=== PATIENT | female | born 1985 | race Caucasian/White ===

== ENCOUNTER 2017-07-29 12:33 | Outpatient (CLI) | payer OTHER ==
--- NOTE | 2017-07-31 15:29 | Ultrasound Report ---
OB ULTRASOUND: 07/29/2017 CLINICAL INDICATION: anatomy. TECHNIQUE: Real-time scanning was performed with risk control field representative static images obtained. LAST MENSTRUAL PERIOD: 02/24/2017 Clinical Age: 22 weeks 1 day US Age: 22 weeks 0 days EFW Hadlock: 476 g EFW% Hadlock: --- Heart Rate: 135 bpm EDC: 12/01/2017 US EDC: 12/02/2017 BPD Hadlock: 22 weeks 0 days; Mean mm 52.6 HC Hadlock: 21 weeks 4 days; Mean mm 193.8 AC Hadlock: 24 weeks 6 days; Mean mm 169.3 FL Hadlock: 22 weeks 3 days; Mean mm 38.8 Presentation: variable Placental Location: posterior Cervical Length: 4.7 cm Amniotic Fluid: 3.8 cm FINDINGS: There is a single viable intrauterine gestation, in variable position. heart rate is 135 BPM. The placenta is posterior, without evidence of previa. Amniotic fluid volume is subjectively normal, with the deepest pocket of 3.8 cm. By size, the fetus measures 22 weeks 0 days (22 weeks 1 day by LMP). The following anatomic structures were visualized and appear normal: The intracranial contents, including the ventricles and posterior fossa; the lips and orbits; the spine; the heart, including 4 chamber view and outflow tracts, and diaphragm; the abdominal contents, including the stomach, the bilateral kidneys, and urinary bladder, as well as a normal 3 vessel cord insertion; 4 limbs. There is a single isolated echogenic focus seen within the abdomen, anterior to the stomach, without shadowing. No dilated bowel loops, ascites, polyhydramnios or anasarca is seen. This is likely an incidental finding, but followup in the third trimester is recommended. No free fluid or adnexal lesion is appreciated. IMPRESSION: SINGLE VIABLE INTRAUTERINE GESTATION, WITH SIZE IN KEEPING WITH LMP DATING. SOLITARY ECHOGENIC FOCUS ANTERIOR TO THE STOMACH AND THE ABDOMEN. NO ASSOCIATED FINDINGS OF MECONIUM PERITONITIS ARE IDENTIFIED, AND THE ECHOGENIC FOCUS DEMONSTRATES NO SHADOWING AT THIS POINT. FOLLOWUP IN THE THIRD TRIMESTER IS RECOMMENDED. MTDD
== END 2017-07-29 12:34 | disposition home or self-care (01) ==
LOC: DI 12:33
PROVIDERS: ATTEND Obstetrics & Gynecology
DX: Z36.9 Encounter for antenatal screening, unspecified (principal)
CPT/HCPCS: 76811

== ENCOUNTER 2017-09-11 10:32 | Outpatient (CLI) | payer OTHER ==
[2017-09-11 17:55] LABS: BILIRUBIN,URINE NEGATIVE (NEGATIVE); GLUCOSE, URINE (UA) NEGATIVE (NEGATIVE); KETONES,URINE (UA) NEGATIVE (NEGATIVE); LEUKOCYTE ESTERASE, URINE NEGATIVE (NEGATIVE); NITRITE,URINE NEGATIVE (NEGATIVE); OCCULT BLOOD,URINE NEGATIVE (NEGATIVE); PH,URINE 7.5 PH (5.0-7.5); PROTEIN,URINE NEGATIVE (NEGATIVE); UROBILINOGEN,URINE 0.2 (NORMAL) E.U./dL (NORMAL)
[2017-09-11 17:55] LABS: BASOPHILS % (AUTO) 0.3 %; EOSINOPHILS # (AUTO) 0.1 10^3/uL (0.0-0.7); EOSINOPHILS % (AUTO) 0.5 %; HGB - HEMOGLOBIN 11.1 g/dL (12.0-16.0); LYMPHOCYTES # (AUTO) 1.5 10^3/uL (1.5-3.5); LYMPHOCYTES % (AUTO) 12.9 %; MEAN CORPUSCULAR HEMOGLOBIN 30.5 pg (27.0-31.0); MEAN CORPUSCULAR HGB CONC 32.1 g/dL (32.0-36.0); MEAN CORPUSCULAR VOLUME 94.9 fL (81.0-99.0); MEAN PLATELET VOLUME 8.9 fL (7.9-10.8); MONOCYTES # (AUTO) 0.6 10^3/uL (0.0-1.0); MONOCYTES % (AUTO) 5.2 %; NEUTROPHILS # (AUTO) 9.5 10^3/uL (1.5-6.6); NEUTROPHILS % (AUTO) 81.1 %; PLT - PLATELET COUNT 243 10^3/uL (130-450); RED BLOOD COUNT 3.63 10^6/uL (4.20-5.40); RED CELL DISTRIBUTION WIDTH 13.1 % (12.0-15.0); WHITE BLOOD COUNT 11.7 x10^3/uL (4.8-10.8)
[2017-09-11 18:13] LABS: AMORPHOUS SEDIMENT,UR Moderate /LPF; BACTERIA,URINE None Seen /HPF (None Seen); CLARITY,URINE CLOUDY (CLEAR); RBC,URINE None Seen /HPF (0-5); SQUAMOUS EPITHELIAL CELL,UR FEW Squamous (<= Few)
[2017-09-14 10:26] LABS: HEPATITIS B SURFACE ANTIGEN NON-REACTIVE (NON-REACTIVE)
[2017-09-14 15:21] LABS: HIV AG/AB 4TH GEN NON-REACTIVE (NON-REACTIVE)
== END 2017-09-11 10:33 | disposition home or self-care (01) ==
LOC: LAB.F 10:32
PROVIDERS: ATTEND Obstetrics & Gynecology
DX: Z11.3 Encounter for screening for infections with a predominantly sexual mode of transmission (principal); Z36.9 Encounter for antenatal screening, unspecified; Z34.90 Encounter for supervision of normal pregnancy, unspecified, unspecified trimester
CPT/HCPCS: 36415; 81001; 81599; 82950; 85025; 85027; 86592; 86762; 86850; 86900; 86901; 87340; 87389

== ENCOUNTER 2017-10-22 10:43 | Outpatient (CLI) | payer OTHER | END 2017-10-22 10:44 | disposition home or self-care (01) | LOC: LAB.R 10:43 | PROVIDERS: ATTEND Obstetrics & Gynecology | DX: R82.99 Other abnormal findings in urine (principal) | CPT/HCPCS: 87086 ==

== ENCOUNTER 2017-11-06 11:15 | Outpatient (CLI) | payer OTHER | END 2017-11-06 11:16 | disposition home or self-care (01) | LOC: LAB.R 11:15 | PROVIDERS: ATTEND Obstetrics & Gynecology | DX: Z36.85 Encounter for antenatal screening for Streptococcus B (principal) | CPT/HCPCS: 87081 ==

== ENCOUNTER 2017-12-06 01:04 | Observation (INO) | payer OTHER ==
[2017-12-06] MEDS ORDERED: MORPHINE 10 MG/ML VIAL IM SCH (02:49)
[2017-12-06] MEDS ORDERED: PROMETHAZINE 25 MG/1 ML VIAL IM SCH (02:50)
[2017-12-06] MEDS ORDERED: oxyCODONE 5 MG TABLET PO ONE (09:30)
[2017-12-06 10:31] VITALS: BP 114/68
== END 2017-12-06 10:15 | disposition home or self-care (01) ==
LOC: WFO 01:04 → FBP 01:06 → WFO 02:40 → FBP 02:41
PROVIDERS: ADMIT Obstetrics & Gynecology; ATTEND Obstetrics & Gynecology
DX: Z34.83 Encounter for supervision of other normal pregnancy, third trimester (principal)
CPT/HCPCS: 99213

== ENCOUNTER 2017-12-06 17:11 | Outpatient (CLI) | payer OTHER | END 2017-12-06 17:12 | disposition home or self-care (01) | LOC: WFO 17:11 | PROVIDERS: ATTEND Obstetrics & Gynecology | DX: Z53.9 Procedure and treatment not carried out, unspecified reason (principal) ==

== ENCOUNTER 2017-12-06 17:20 | Inpatient (IN) | payer OTHER ==
[2017-12-06] MEDS ORDERED: SODIUM CHLORIDE FLUSH 0.9% 10 ML SYRINGE ONE (17:54)
[2017-12-06] MEDS ORDERED: SODIUM CHLORIDE FLUSH 0.9% 10 ML SYRINGE IVP PRN (18:07)
[2017-12-06] MEDS ORDERED: fentaNYL 100 MCG/2 ML VIAL IVP PRN (18:19)
[2017-12-06] MEDS ORDERED: ONDANSETRON 4 MG/2 ML VIAL IVP PRN (18:20)
[2017-12-06 18:34] LABS: BASOPHILS # (AUTO) 0.1 10^3/uL (0.0-0.1); BASOPHILS % (AUTO) 0.9 %; EOSINOPHILS # (AUTO) 0.1 10^3/uL (0.0-0.7); EOSINOPHILS % (AUTO) 0.6 %; HGB - HEMOGLOBIN 11.3 g/dL (12.0-16.0); LYMPHOCYTES # (AUTO) 2.2 10^3/uL (1.5-3.5); LYMPHOCYTES % (AUTO) 19.5 %; MEAN CORPUSCULAR HEMOGLOBIN 27.5 pg (27.0-31.0); MEAN CORPUSCULAR HGB CONC 33.4 g/dL (32.0-36.0); MEAN CORPUSCULAR VOLUME 82.3 fL (81.0-99.0); MEAN PLATELET VOLUME 9.4 fL (7.9-10.8); MONOCYTES # (AUTO) 0.7 10^3/uL (0.0-1.0); MONOCYTES % (AUTO) 5.9 %; NEUTROPHILS # (AUTO) 8.2 10^3/uL (1.5-6.6); NEUTROPHILS % (AUTO) 73.1 %; PLT - PLATELET COUNT 273 10^3/uL (130-450); RED BLOOD COUNT 4.11 10^6/uL (4.20-5.40); RED CELL DISTRIBUTION WIDTH 15.8 % (12.0-15.0); WHITE BLOOD COUNT 11.2 x10^3/uL (4.8-10.8)
[2017-12-06] MEDS: LACTATED RINGERS 1,000 ML IV SCH (18:59)
[2017-12-06] MEDS ORDERED: OXYTOCIN/SODIUM CHLORIDE 500 ML IV SCH (19:00)
[2017-12-07] MEDS ORDERED: SODIUM CHLORIDE FLUSH 0.9% 10 ML SYRINGE IVP SCH (01:00)
[2017-12-07] MEDS: LACTATED RINGERS 1,000 ML IV SCH ×3 (01:06→08:48)
[2017-12-07] MEDS ORDERED: fent/BUPIV 2 MCG/0.125% 250 ML EP ONE (07:29)
--- NOTE | 2017-12-07 07:59 | ANESTHESIA ---
Pre-Anesthesia VS, & Labs - Diagnosis , term - Procedure labor epidural Vital Signs: Temp Pulse Resp BP Pulse Ox 36.6 C 72 20 131/80 H 100 12/06/17 17:26 12/06/17 17:26 12/06/17 17:26 12/06/17 17:26 12/06/17 17:26 Height 5 ft 4 in Weight (kg) 68.039 kg Body Mass Index 25.7 - NPO Last Food Intake: supper last night - Is Patient ?: Yes - Lab Results Current Lab Results: Laboratory Tests 12/06/17 18:13: WBC 11.2 H, RBC 4.11 L, Hgb 11.3 L, Hct 33.8 L, MCV 82.3, MCH 27.5, MCHC 33.4, RDW 15.8 H, Plt Count 273, MPV 9.4, Neut # (Auto) 8.2 H, Lymph # (Auto) 2.2, [place]oval # (Auto) 0.7, Eos # (Auto) 0.1, Baso # (Auto) 0.1, Absolute Nucleated RBC 0.00, Nucleated RBC % 0.0, Manual Slide Review DIRECTOR OF CRITICAL CARE, WBC Morphology DIRECTOR OF CRITICAL CARE, Platelet Estimate DIRECTOR OF CRITICAL CARE, Platelet Morphology DIRECTOR OF CRITICAL CARE, RBC Morph Micro Appear DIRECTOR OF CRITICAL CARE Fish Bones: 12/06/17 18:13 Home Medications and Allergies Home Medications: Ambulatory Orders Medication Instructions Recorded Confirmed Calcium Carbonate [Tums (Calcium 1,000 mg PO BID 12/06/17 12/06/17 Carbonate 500mg)] Pnv95/Ferrous Fumarate/FA 1 each PO DAILY 12/06/17 12/06/17 [ Formula] Active Medications Fentanyl (Fentanyl) 100 mcg IVP Q1H PRN PRN Reason: PAIN Lactated Ringer's (Lr) 1,000 mls @ 150 mls/hr IV .Q6H40M MAUREEN Last Admin: 12/07/17 07:29 Dose: 999 mls/hr Oxytocin/Sodium Chloride (Pitocin/Sodium Chloride) 500 mls @ 1 mls/hr IV TITR MAUREEN; Protocol Last Admin: 12/06/17 19:00 Dose: 1 milliunit/min, 1 mls/hr Ondansetron HCl (Zofran Inj) 4 mg IVP Q4HR PRN PRN Reason: Nausea / Vomiting Sodium Chloride (Normal Saline Flush 0.9%) 10 ml IVP PRN PRN PRN Reason: NEEDED PER PROVIDER ORDERS Sodium Chloride (Normal Saline Flush 0.9%) 10 ml IVP 0100,0900,1700 MAUREEN Calcium Carbonate [Tums (Calcium Carbonate 500mg)] 1,000 mg PO BID 12/06/17 Pnv95/Ferrous Fumarate/FA [ Formula] 1 each PO DAILY 12/06/17 Allergies/Adverse Reactions: Allergies Allergy/AdvReac Type Severity Reaction Status Date / Time No Known Drug Allergies Allergy Verified 12/06/17 03:01 Anes History & Medical History - Anesthetic History Anesthesia Complications: reports: No previous complications - Medical History Cardiovascular: reports: None Pulmonary: reports: None Gastrointestinal: reports: None Urinary: reports: None Neuro: reports: None Musculoskeletal: reports: None Endocrine/Autoimmune: reports: None Blood Disorders: reports: None Skin: reports: None Smoking Status: Never smoker - Obstetrical History Events: positive: None Complications: positive: None Problems: none, FHR 133-142 OB Anesthesia History: vaginal ten years ago with epidural Plan Anesthesia Type: Epidural Consent for Procedure(s) Verified and Reviewed: Yes Code Status: Attempt Resuscitation ASA classification: 2-Mild systemic disease Is this case an emergency?: No
[2017-12-07] MEDS ORDERED: LACTATED RINGERS 500 ML IV ONE (08:15)
[2017-12-07] MEDS ORDERED: NALBUPHINE 10 MG/ML AMP IVP PRN (08:15)
[2017-12-07] MEDS ORDERED: diphenhydrAMINE INJ 50 MG/ML VIAL IVP PRN (08:15)
[2017-12-07] MEDS ORDERED: ONDANSETRON 4 MG/2 ML VIAL IVP PRN (08:15)
[2017-12-07] MEDS ORDERED: METOCLOPRAMIDE 10 MG/2 ML VIAL IVP PRN (08:15)
[2017-12-07] MEDS ORDERED: ePHEDrine 50 MG/ML VIAL IVP PRN (08:15)
[2017-12-07] MEDS ORDERED: fent/BUPIV 2 MCG/0.125% 250 ML EP PRN (08:15)
[2017-12-07] MEDS ORDERED: NALOXONE 0.4 MG/ML VIAL IVP PRN (08:15)
--- NOTE | 2017-12-07 08:42 | HISTORY & PHYSICAL EXAMINATION ---
History of Present Illness - History of Present Illness HPI Comment/Other: Delayed entry from 12/08/17 CC: contractions HPI: UC ongoing for 48h, would go ahead and like to be augmented at this time, post dates IOL was scheduled for 2d in the future. No VB, no LOF. Good FM. Not feeling ill recently. 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 OB: , uncomplicated this time and prior time. Had a last time within 7h of onset of labor. Normal labs, GBS neg. RH + RI. s/p tdap and flu vax during this . FH: no anesthesia complications O: AVSS Alert, NAD 8.5# omer EFG normal SVE currently 12/07/17 at 08:30 is 4-5/80/-3, vertex, slightly mobile head. Comfortable with epidural. Category 1 NST [place] q3min A/P: 32yo @ 40w6d by LMP c/w 1st TM US, augmented labor for a long prodrome. GBS neg, vertex, 8.5# EFW, category 1 tracing, good recent SVE change. Comfortable with epidural. Sleep and position changes knees open on peanut ball. Anticipate and ensure ongoing SVE change. History - Past Medical History Cardiovascular: reports: None Respiratory: reports: None Neuro: reports: None Endocrine/Autoimmune: reports: None GI: reports: None : reports: None HEENT: reports: None Psych: reports: None Musculoskeletal: reports: None Derm: reports: None Meds/Allgy - Home Medications Home Medications: Ambulatory Orders Medication Instructions Recorded Confirmed Calcium Carbonate [Tums (Calcium 1,000 mg PO BID 12/06/17 12/06/17 Carbonate 500mg)] Pnv95/Ferrous Fumarate/FA 1 each PO DAILY 12/06/17 12/06/17 [ Formula] - Allergies Allergies/Adverse Reactions: Allergies Allergy/AdvReac Type Severity Reaction Status Date / Time No Known Drug Allergies Allergy Verified 12/06/17 03:01 Conclusion/Plan - Lab Results Fish Bones: 12/06/17 18:13
[2017-12-07] MEDS ORDERED: DEXTROSE 5%-LACTATED RINGERS 1,000 ML IV SCH (09:00)
[2017-12-07] MEDS ORDERED: LACTATED RINGERS 1,000 ML IV ONE (11:37)
[2017-12-07] MEDS ORDERED: LIDOCAINE 1% 50 ML MDV ONE (11:46)
[2017-12-07] MEDS ORDERED: MINERAL OIL LIGHT 10 ML MC ONE ×2 (11:46→13:55)
[2017-12-07] MEDS ORDERED: miSOPROStol 100 MCG TABLET ONE (11:46)
[2017-12-07] MEDS ORDERED: WITCH HAZEL/GLYCERIN 1 EACH MED..PAD TOP PRN (13:55)
[2017-12-07] MEDS ORDERED: oxyCODONE 5 MG TABLET PO PRN (13:55)
[2017-12-07] MEDS ORDERED: OXYTOCIN/SODIUM CHLORIDE 250 ML IV ONE (13:55)
[2017-12-07] MEDS ORDERED: LIDOCAINE 1% 50 ML MDV TD ONE (13:56)
[2017-12-07] MEDS ORDERED: LACTATED RINGERS 1,000 ML IV SCH ×2 (14:00→15:00)
--- NOTE | 2017-12-07 14:01 | DELIVERY NOTE ---
Delivery Note - Labor Labor: positive: Augmented by oxytocin - Delivery Method Delivery Method: positive: Vacuum assist - Presentation Presentation: positive: Vertex, TUCKER - right occiput anterior - Nuchal Cord Nuchal Cord: positive: None - Anesthetic Volume: positive: Other - Amniotic Fluid Description Amniotic Fluid Description: positive: Clear - Vacuum Use Indication for Vacuum Use: positive: Suspicion of immediate or potential compromise Type of Vacuum Cup: positive: Cup: Rigid Vacuum Extraction: positive: Successful Number of pop-offs: 0 - Episiotomy Type Episiotomy Type: positive: None - Laceration Laceration: positive: None - Suture Suture Type: positive: Vicryl Suture Size: positive: 3-0 (Pt had a rigth labial skin tag which was removed following local and excision and closure with 3-0 vicryl.) - Delivery Outcome Delivery Outcome: positive: Livebirth - : positive: Placed in direct skin contact with mother, Suctioned, Bulb sy ringe, Stimulated, [place] used [place] sex: positive: Male (Scar) - Cord Cord: positive: 3 vessels - Placenta Placenta: positive: Intact, Spontaneous - Estimated Blood Loss Estimated Blood Loss (in cc): 150 - Post Delivery Events Post Delivery Events: positive: No post delivery events - Delivery Comments (Free Text/Narrative) Delivery Comments (Free Text/Narrative): Head remained high. during labor maternal heart rate was noted to b about 30. for this reason an EKG done which was noted to be NSR. Telemitry showed lowest rate of 50. Pt reached complete at 11:59, crenshaw bulb was between the pubic arch and head. reduced AROM at the same time. head rapidly descended and at 1252 Live Male 9/10 over intact perineum. because of jeff cardic episodes into the 70's a vaccume was places at +3 and pulled thru one contraction. removed and mother was allowed to push the baby out. placenta followedat 1300 intact. with verbal consent a right labia minoria skin tag was removed following local with 1% lidocane adn closure with 3-0 vicryl.
[2017-12-07] MEDS: IBUPROFEN 800 MG TABLET PO SCH ×2 (14:48→21:05)
[2017-12-07] MEDS: ACETAMINOPHEN 500 MG TABLET PO SCH ×2 (14:49→22:49)
--- NOTE | 2017-12-07 19:01 | ANESTHESIA POST OP EVALUATION ---
Anesthesia Post Eval - Post Anesthesia Eval CV Function Including HR & BP: positive: Stable Anesthesia Complications: positive: None (patient stated that they had good pain control with labor and was still able to participate and push. Told Karly to call if she develops a unrelenting headache, backpain not relieved with OTC Tylenol or NSAIDS. I also instructed her to call if signs of infection presented at epidural site or numbness or weakness in legs.)
[2017-12-08] MEDS: IBUPROFEN 800 MG TABLET PO SCH ×2 (03:00→09:15)
[2017-12-08] MEDS: ACETAMINOPHEN 500 MG TABLET PO SCH (09:15)
[2017-12-08 14:17] VITALS: BP 117/75
--- NOTE | 2017-12-08 18:13 | Labor Flowsheet ---
Labor Flowsheet Datetime Report Generated by CPN: 12/08/2017 18:13 Datetime: 12/08/2017 14:15 VITAL SIGNS NBP Sys/Anisha/Mean (mmHg): 117 : 75 : 84 Pulse: 67 LaborFlag: Labor Datetime: 12/08/2017 08:58 SpO2 (%): 100 Datetime: 12/07/2017 12:52 ASSESSMENT A Monitor Mode: External US FHR Baseline Rate : 115 Variability: Moderate 6-25 bpm Accelerations: 15X15 Comments: possible variable heard on monitor but poor tracing d/t maternal position during pushing Datetime: 12/07/2017 12:49 Vacuum: Off Datetime: 12/07/2017 12:45 Decelerations: Variable Category: Category II Datetime: 12/07/2017 12:40 Anesthesia Level Check: T8- Ribs Datetime: 12/07/2017 12:30 TEACHING Instructional Method: Verbal Plan of Care: Plan of Care Discussed; Vaginal Delivery Labor/Induction: Pushing Methods Datetime: 12/07/2017 12:28 Monitor Interventions for FHR: Ultrasound Adjusted Datetime: 12/07/2017 12:17 STAGE 2 Pushing Position: Pushing with Contractions; Pushing Lithotomy Pushing Progress: Descent with Pushing Datetime: 12/07/2017 12:15 I/O Interventions: Jarrell Discontinued Datetime: 12/07/2017 12:05 PAIN Pain Scale: 6 Pain Presence: Intermittent Pain Type: Contraction Pain Location: Other Pain Assessment Comments: pt pressed epidural button Datetime: 12/07/2017 11:59 VAGINAL EXAM Dilatation (cm): 10.0 Effacement (%): 100 Station: -2 Exam by: Dr. Chi Membrane Status: Ruptured Membranes Rupture Method: Artificial Amniotic Fluid Color: Clear Amniotic Fluid Amount: Small Amniotic Fluid Odor: Normal Membrane Comments: forebag ruptured Datetime: 12/07/2017 11:45 Pitocin Checklist: At Least 1 Acceleration of 15 bpm x 15 Seconds in 30 Minutes or Adequate Variabi lity; No More than 5 Uterine Contractions in 10 Minutes for any 20 Minute Interval; Uterus Palpates S oft between Contractions Datetime: 12/07/2017 11:38 COMMUNICATION Communication: Call/Page Placed to Provider Provider Notified (Name): Dr. Chi Communication Comments: Notified of FHR tracing - minimal variability w/ late decels - pit turned o ff, IV bolus, O2 on, repositioned; notified of latest VE; provider to report to hospital Datetime: 12/07/2017 11:34 MEDICATIONS Pitocin (milliunits): Discontinued Datetime: 12/07/2017 11:26 Actions for Decelerations: Side to Side; IV Bolus Patient Position/Activity: Left Lateral Patient Care Comments: w/ peanut ball Datetime: 12/07/2017 11:03 Temperature (C): 36.7 Datetime: 12/07/2017 10:33 Teaching Comments: telemetry and EKG Datetime: 12/07/2017 10:29 Pain Coping: Sleeping Datetime: 12/07/2017 10:18 Vital Sign Comments: telemetry reads NSR Datetime: 12/07/2017 10:00 Respirations: 16 Datetime: 12/07/2017 09:45 UTERINE ACTIVITY Monitor Mode: External Frequency (min): 1.5-4 Quality: Moderate Duration (sec): 60-100 Pattern: Normal: <= 5 Contractions in 10 Minutes Resting Tone (Palpate): Relaxed Datetime: 12/07/2017 09:29 FHR Baseline Changes: No Baseline Change Oxygen Method: Room Air Datetime: 12/07/2017 08:51 Pain Relief Measures: Epidural Given Datetime: 12/07/2017 08:30 MATERNAL ASSESSMENT Level of Consciousness: Fully Conscious Headache: Denies Breath Sounds, Left: Clear and Equal Breath Sounds, Right: Clear and Equal Nausea/Vomiting: Denies Datetime: 12/07/2017 08:18 Pain Management: Epidural Datetime: 12/07/2017 07:59 Epidural Procedure: Loading Dose Datetime: 12/07/2017 07:43 ANESTHESIA Epidural Positioning: Sitting Datetime: 12/07/2017 07:30 Unit Routine: Unit Personnel; Medications Datetime: 12/07/2017 06:29 Pain Goal: 8 Datetime: 12/07/2017 06:26 Temperature Route: Oral Datetime: 12/07/2017 05:11 Medication Comments: pitocin increased to 11 mu/min Datetime: 12/07/2017 04:17 Contraction Comments: telemetry TOCO off to charge Datetime: 12/07/2017 04:01 Comfort Measures: Breathing/Relaxation; Family Support Datetime: 12/07/2017 00:41 Stage of : Labor Datetime: 12/06/2017 19:02 PATIENT CARE IV/Blood Work: IV Started
--- NOTE | 2017-12-24 13:16 | DISCHARGE SUMMARY ---
Physician: Nathan Chi MD DATE OF ADMISSION: 12/06/2017 DATE OF DISCHARGE: 12/08/2017 ADMITTING DIAGNOSES 1. A 32-year-old G2, P1, 40s. 2. 40.6 weeks' gestation. 3. Prodromal labor. DISCHARGE DIAGNOSES 1. A 32-year-old G2, P1, 40s. 2. 40.6 weeks' gestation. 3. Prodromal labor. 4. Deep variable deceleration and assisted vaginal delivery. PROCEDURES 1. Pitocin augmentation. 2. Epidural. 3. Vacuum-assisted vaginal delivery. 4. Excision of hymenal ring tag. PRESENTING HISTORY: The patient is a 32-year-old G2, P1 female who was 40.6 weeks on admission. She gives a history of having had contractions, which have been going on for the past 48 hours. Upon pr esenting to Labor and Delivery, she was 4-5 cm, 80%, and -3. LABORATORIES: CBC on admission showed a hemoglobin of 11.3, hematocrit 33.8, white count was 10.2, p latelets were 273,000. HOSPITAL COURSE: The patient was admitted and because of her prolonged contractions she was augmente d with Pitocin. She had an epidural placed for labor analgesia. She was GBS negative and had a pratibha gory 1 tracing. She progressed to complete, but during the second stage, she developed difficulties with deep decelerations down into the 70s. For this reason, a Mityvac was placed at +3 and pulled th rough one contraction. The head easily delivered at which time a live male infant was delivered at 1 2:52. He had Apgars of 9 and 10, and was delivered over an intact perineum. The patient requested t hat she have a right labial skin tag removed, which was done with 1% lidocaine. The patient tolerate d this well. Both mother and infant's course were unremarkable. She was discharged to [facility] on the with discharge medications of Motrin. We discussed contraceptions. We also reviewed mastitis as well as vaginal bleeding and pain. TD: 12/24/2017 12:43
== END 2017-12-08 18:10 | disposition home or self-care (01) | DRG 775 ==
LOC: WFO 17:20 → FBP 17:22 → WFO 18:24
PROVIDERS: ADMIT Obstetrics & Gynecology; ATTEND Obstetrics & Gynecology
PROC: 10D07Z6 Extraction of Products of Conception, Vacuum, Via Natural or Artificial Opening (ICD-10-PCS; principal; 2017-12-06)
PROC: 0HB9XZZ Excision of Perineum Skin, External Approach (ICD-10-PCS; 2017-12-06)
DX: O63.0 Prolonged first stage (of labor) (principal); O48.0 Post-term pregnancy; O99.89 Other specified diseases and conditions complicating pregnancy, childbirth and the puerperium; R00.1 Bradycardia, unspecified; O76 Abnormality in fetal heart rate and rhythm complicating labor and delivery; O75.89 Other specified complications of labor and delivery; O99.72 Diseases of the skin and subcutaneous tissue complicating childbirth; N84.3 Polyp of vulva; Z37.0 Single live birth; Z3A.40 40 weeks gestation of pregnancy
CPT/HCPCS: 85025; 93005; 99213